=== PATIENT | female | born 1945 | race Two or more races ===

== ENCOUNTER 2017-05-22 22:20 | Inpatient (IN) | payer OTHER ==
[~2017-05-22] VITALS: Ht 152.4 cm; Wt 51.3 kg
--- NOTE | 2017-05-22 22:30 | NUR ---
PT TO ER BED 9. FAMILY AT BEDSIDE. PT BIBRA C/O ABD PAIN WITH N/V/D X 2 HOURS. FAMILY STATES PT SEEMS CONFUSED. PT PLACED IN GOWN AND ON POCKET MARKER. VSS/RESP EVEN UNLABORED/NAD NOTED/SKIN WARM AND DRY/AFEBRILE/AOX4. AWAITING MD CERDA.
--- NOTE | 2017-05-22 22:35 | NUR ---
URINE OBTAINED AND SENT TO THE LAB.
--- NOTE | 2017-05-22 22:40 | NUR ---
20G TO R HAND X 1 ATTEMPT USING ASEPTIC TECH, IV FLUSHES EASILY WITH NS. NO S/S INFILTRATION. LAB AT BEDSIDE TO DRAW.
[2017-05-22] MEDS ORDERED: IV NS 0.9% 1,000 ML BAG IV ONE (23:00)
[2017-05-23 00:01] LABS: BASOPHILS # (AUTO) 0.1 /CMM (0.0-0.2); BASOPHILS % (AUTO) 1.1 % (0.0-2.0); EOSINOPHILS # (AUTO) 0.4 /CMM (0.0-0.7); EOSINOPHILS % (AUTO) 3.7 % (0.0-6.0); HEMATOCRIT 44 % (33-45); HEMOGLOBIN 15.1 g/dL (11.5-14.8); LYMPHOCYTES # (AUTO) 2.1 /CMM (0.8-4.8); LYMPHOCYTES % (AUTO) 18.4 % (20.0-44.0); MEAN CORPUSCULAR HEMOGLOBIN 32 PG (26.0-33.0); MEAN CORPUSCULAR HGB CONC 34 g/dl (31.0-36.0); MEAN CORPUSCULAR VOLUME 93 fL (82-100); MONOCYTES # (AUTO) 0.7 /CMM (0.1-1.30); MONOCYTES % (AUTO) 6.4 % (2.0-12.0); NEUTROPHILS # (AUTO) 8.2 /CMM (1.8-8.9); NEUTROPHILS % (AUTO) 70.4 % (43.0-81.0); PLATELET COUNT (AUTO) 278 /CMM (150-450); RDW COEFFICIENT OF VARIATION 13.3 (11.5-15.0); RED BLOOD CELL COUNT(AUTO) 4.75 MIL/uL (4.0-5.2); WHITE BLOOD COUNT (AUTO) 11.6 K/uL (4.3-11.0)
[2017-05-23 00:15] LABS: SERUM AMMONIA 6 umol/L (11-32)
[2017-05-23 00:16] LABS: CALCIUM, SERUM 9.9 mg/dL (8.5-10.1); CARBON DIOXIDE 26 mmol/L (21-32); CHLORIDE 103 mmol/L (98-107); CREATININE 0.9 mg/dL (0.6-1.3); GLUCOSE 131 mg/dL (74-106); POTASSIUM 3.4 mmol/L (3.5-5.1); SODIUM SERUM 139 mmol/L (136-145); UREA NITROGEN, BLOOD 19 mg/dL (7-18)
[2017-05-23 00:22] LABS: TROPONIN I 0.028 ng/mL (0.00-0.056)
[2017-05-23 00:24] LABS: ALANINE AMINOTRANSFERASE 19 U/L (12-78); ALCOHOL, BLOOD < 3 mg/dL (0-0); ALKALINE PHOSPHATASE 91 U/L (46-116); ASPARTATE AMINOTRANSFERASE 17 U/L (15-37); BILIRUBIN,DIRECT 0.1 mg/dL (0.0-0.2); BILIRUBIN,TOTAL 0.4 mg/dL (0.2-1.0)
[2017-05-23 00:25] LABS: ACETAMINOPHEN 0 ug/ml (10-30); SALICYLATE 1.2 mg/dL (2.8-20.0)
[2017-05-23 00:26] LABS: THYROID STIMULATING HORMONE 3.005 uIU/mL (0.358-3.74)
[2017-05-23 00:37] LABS: INR 0.96 (0.87-1.13)
[2017-05-23 00:38] LABS: APPEARANCE,URINE CLEAR (CLEAR); BILIRUBIN,URINE NEGATIVE (NEGATIVE); BLOOD, URINE TRACE-INTA Ery/uL (NEGATIVE); COLOR,URINE YELLOW (YELLOW); KETONES,URINE NEGATIVE (NEGATIVE); LEUKOCYTE ESTERASE ,URINE NEGATIVE (NEGATIVE); NITRITE, URINE NEGATIVE (NEGATIVE); PROTEIN,URINE NEGATIVE (NEGATIVE); UGLUCOSE NEGATIVE (NEGATIVE); UROBILINOGEN,URINE 0.2 EU/dL (0.2)
--- NOTE | 2017-05-23 00:45 | NUR ---
PT AMBULATORY TO THE RESTROOM WITH STEADY GAIT.
[2017-05-23 00:47] LABS: BACTERIA,URINE None seen /HPF (None Seen); SQUAMOUS EPITHELIAL CELL,UR Rare /HPF (None Seen); WBC,URINE 0-2 /HPF (0-3)
--- NOTE | 2017-05-23 01:04 | NUR ---
LEW PHONE # [phone]. OLGA.
--- NOTE | 2017-05-23 03:12 | NUR ---
Taylor prince in ED - 05/23/17 at 0313 by FLORENTINO PT AMBULATORY TO THE RESTROOM WITH STEADY GAIT. VV.
--- NOTE | 2017-05-23 03:13 | NUR ---
PT AMBULATORY TO THE RESTROOM WITH STEADY GAIT. VSS.
--- NOTE | 2017-05-23 03:50 | NUR ---
REPORT CALLED TO SHAHEED FLETCHER FOR SACHI.
[2017-05-23 04:00] VITALS: BP 164/82
--- NOTE | 2017-05-23 04:02 | NUR ---
PT TO TELE 324-2 VIA STRETCHER ON GRANITE WORKER WITH RN PER ACLS PROTOCOL. VSS.
--- NOTE | 2017-05-23 04:10 | NUR ---
DIGITAL MARKETING ASSISTANTPOWER SWEEPER OPERATOR NOTES PT ARRIVED TO FLOOR VIA GURNEY, ABLE TO AMBULATE FROM GURNEY TO BED WITH STEADY GATE. IS AT BEDSIDE. PT IS A/O X3 ABLE TO MAKE NEEDS KNOWN. PT IS ANXIOUS AND IS NEEDING TO ADAPT TO THE NEW ENVIRONMENT. NO SIGNS OF SOB OR DISTRESS. BREATHING EVENLY AND UNLABORED ON RA. SKIN IS INTACT. DENIES PAIN AT THIS TIME. BED IS IN LOW AND LOCKED POSITION, CALL LIGHT WITHIN REACH. WILL CONTINUE TO MONITOR PT
--- NOTE | 2017-05-23 06:50 | NUR ---
QA AUDITOR CLOSING NOTES PT IS IN BED RESTING. BREATHING EVENLY AND UNLABORED. TELE MONITOR SHOWING SR 64. NO SIGNS OF SOB OR DISTRESS. PLACED PT ON 2L NC FOR COMFORT, PAGED DR VALDES TWICE, AWAITING CALL BACK AND ORDERS. BED IS IN LOW AND LOCKED POSITION, CALL LIGHT WITHIN REACH. WILL ENDORSE TO DAY SHIFT
[2017-05-23] MEDS ORDERED: Potassium Chloride 20 MEQ in IV D5/0.45 NACL 1,000 ML IV PRN (07:00)
[2017-05-23] MEDS ORDERED: ACETAMINOPHEN 650 MG/SUPP.RECT RC PRN (07:00)
[2017-05-23] MEDS ORDERED: ONDANSETRON HCL/PF 4 MG/2 ML VIAL IVP PRN (07:00)
[2017-05-23] MEDS ORDERED: MORPHINE SULFATE INJ 2 MG/ML DISP.SYRIN IV PRN (07:00)
[2017-05-23] MEDS ORDERED: HYDROMORPHONE INJ 0.5 MG/0.5 ML SYRINGE IV PRN (07:30)
--- NOTE | 2017-05-23 07:40 | NUR ---
RN OPENING NOTES PT IN BED RESTING. RESPIRATIONS EVEN AND UNLABORED ON ROOM AIR. NO SOB, RESPIRATORY DISTRESS OR COMPLAINTS OF PAIN NOTED AT THIS TIME. NO COMPLAINTS OF NAUSEA OR VOMITING AT THIS TIME. PT ON TELEMETRY MONITORING. PT WITH RIGHT HAND IV PRESENT, PATENT AND INTACT NO REDNESS OR INFILTRATION NOTED. BED LOCKED AND IN LOWEST POSITION, SIDE RAILS UP X 3, BED ALARM ON,SAFETY MEASURES IN PLACE CALL LIGHT WITHIN REACH, WILL CONTINUE TO MONITOR
[2017-05-23 08:00] VITALS: BP 149/88
[2017-05-23] MEDS ORDERED: ASPIRIN 300 MG/SUPP.RECT RC SCH (09:00)
[2017-05-23] MEDS ORDERED: FAMOTIDINE/PF INJ 20 MG/2 ML VIAL IV SCH (09:00)
[2017-05-23 10:12] LABS: BASOPHILS # (AUTO) 0.1 /CMM (0.0-0.2); BASOPHILS % (AUTO) 0.8 % (0.0-2.0); EOSINOPHILS # (AUTO) 0.2 /CMM (0.0-0.7); EOSINOPHILS % (AUTO) 1.1 % (0.0-6.0); HEMATOCRIT 43 % (33-45); HEMOGLOBIN 14.9 g/dL (11.5-14.8); LYMPHOCYTES # (AUTO) 1.7 /CMM (0.8-4.8); LYMPHOCYTES % (AUTO) 12.2 % (20.0-44.0); MEAN CORPUSCULAR HEMOGLOBIN 32 PG (26.0-33.0); MEAN CORPUSCULAR HGB CONC 35 g/dl (31.0-36.0); MEAN CORPUSCULAR VOLUME 93 fL (82-100); MONOCYTES # (AUTO) 0.9 /CMM (0.1-1.30); NEUTROPHILS # (AUTO) 11.4 /CMM (1.8-8.9); NEUTROPHILS % (AUTO) 79.9 % (43.0-81.0); PLATELET COUNT (AUTO) 322 /CMM (150-450); RDW COEFFICIENT OF VARIATION 12.8 (11.5-15.0); RED BLOOD CELL COUNT(AUTO) 4.66 MIL/uL (4.0-5.2); WHITE BLOOD COUNT (AUTO) 14.3 K/uL (4.3-11.0)
[2017-05-23 10:27] LABS: CALCIUM, SERUM 9.5 mg/dL (8.5-10.1); CARBON DIOXIDE 26 mmol/L (21-32); CHLORIDE 110 mmol/L (98-107); CREATININE 0.8 mg/dL (0.6-1.3); GLUCOSE 111 mg/dL (74-106); SODIUM SERUM 147 mmol/L (136-145); UREA NITROGEN, BLOOD 11 mg/dL (7-18)
[2017-05-23 10:34] LABS: ALANINE AMINOTRANSFERASE 21 U/L (12-78); ALBUMIN 3.9 g/dL (3.4-5.0); ALKALINE PHOSPHATASE 86 U/L (46-116); ASPARTATE AMINOTRANSFERASE 16 U/L (15-37); BILIRUBIN,TOTAL 0.5 mg/dL (0.2-1.0); MAGNESIUM 1.9 mg/dL (1.8-2.4); PHOSPHORUS 3.2 mg/dL (2.5-4.9); TOTAL PROTEIN, SERUM 7.1 g/dL (6.4-8.2)
[2017-05-23 11:15] LABS: CHOLESTEROL 211 mg/dL (<200); HDL CHOLESTEROL 71 mg/dL (40-60); LDL 128 mg/dL (0-99); TRIGLYCERIDES 70 mg/dL (30-150)
--- NOTE | 2017-05-23 11:37 | NUR ---
RN NOTES/MD ROUNDING PATIENT SEEN AND EXAMINED BY DR SANTIAGO, REVIEWED PLAN OF CARE WITH NEW ORDERS CARRIED OUT
[2017-05-23] MEDS: CARVEDILOL 6.25 MG TABLET PO SCH ×2 (12:00→13:46)
--- NOTE | 2017-05-23 12:39 | NUR ---
SHAHEED NOTES SEEN AND EXAMINED BY DR. PAMELA DA SILVA MD TO CONTINUE TELEMETRY STATUS Addendum: 05/23/17 at 1240 by ROBYN CORONA RN Amended: Links added.
[2017-05-23] MEDS ORDERED: ASPIRIN 81 MG TAB.CHEW PO SCH (13:00)
[2017-05-23] MEDS ORDERED: POTASSIUM CHLORIDE 20 MEQ TAB.PRT.SR PO ONE (13:00)
--- NOTE | 2017-05-23 15:25 | NUR ---
SHAHEED NOTES PATIENT REFUSES, NURSING EDUCATION REINFORCED, AWARE Addendum: 05/23/17 at 1528 by ROBYN CORONA RN Amended: Links added.
--- NOTE | 2017-05-23 15:30 | NUR ---
SHAHEED NOTES ONLY ASPIRIN TO BE ADMINISTERED, NO ANTI COAGULANTS AT THIS TIME PER DR. SANTIAGO Addendum: 05/23/17 at 1532 by ROBYN CORONA RN Amended: Links added.
[2017-05-23 15:53] VITALS: BP 106/67
[2017-05-23] MEDS ORDERED: ACETAMINOPHEN 325 MG TABLET PO PRN (17:00)
--- NOTE | 2017-05-23 18:00 | NUR ---
RN NOTES CALLED RADIOLOGY TO ASK FOR RESULTS OF MRI PER TECH WILL HAVE RADIOLOGIST READ, FAMILY INFORMED
--- NOTE | 2017-05-23 19:35 | NUR ---
RN CLOSING NOTES PT IN BED RESTING. RESPIRATIONS EVEN AND UNLABORED ON ROOM AIR. NO SOB, RESPIRATORY DISTRESS OR COMPLAINTS OF PAIN NOTED AT THIS TIME. NO COMPLAINTS OF NAUSEA OR VOMITING AT THIS TIME. PT ON TELEMETRY MONITORING. PT WITH RIGHT HAND IV REMOVED WITH NO ASE. BED LOCKED AND IN LOWEST POSITION, SIDE RAILS UP X 2, SAFETY MEASURES IN PLACE CALL LIGHT WITHIN REACH,DR SANTIAGO WITH VERBAL DISCHARGE ORDERS WILL ASSIST WITH DISCHARGE PROCESS AND ENDORSE FOR CONTINUATION OF DC PROCESS
[2017-05-23 20:02] VITALS: BP 116/59
--- NOTE | 2017-05-23 20:30 | NUR ---
MS COLLAR CLOSER LOCKSTITCH NOTE REPORT WAS RECEIVED FOR PT. DURING REPORT DR SANTIAGO WAS ON THE FLOOR AND GAVE ORDERS TO DISCHARGE PT. PT IS AWAKE AND ALERT WITH FAMILY AT BEDSIDE. STROKE SURVEY WAS DONE WITH AT BEDSIDE. EXIT CARE, LABS, IMAGING, AND NOTES WERE GIVEN TO PATIENT. EXIT CARE WAS REVIEWED WITH PATIENT AND AT BEDSIDE. VITALS WERE WNL. BP 116/59, HR 75, RR 18, TEMP 98.1, DENIES PAIN, NO SIGNS OF SOB OR DISTRESS. IV ACCESS AND ID BAND WERE REMOVED. PT WAS ABLE TO AMBULATE WITH STEADY GAIT. ESCORTED DOWN BY SUNNY CARRASCO.
[2017-05-23] MEDS ORDERED: ATORVASTATIN 40 MG TABLET PO SCH (22:00)
[2017-05-24] MEDS ORDERED: FAMOTIDINE (20 MG) 20 MG TABLET PO SCH (09:00)
== END 2017-05-23 20:30 | disposition home or self-care (01) | DRG 69 ==
LOC: ER 22:21 → TELE 05-23 03:53 → MED 05-23 09:41 → TELE 05-23 12:00
PROVIDERS: ADMIT Internal Medicine; ATTEND Internal Medicine
DX: G45.9 Transient cerebral ischemic attack, unspecified (principal); I21.4 Non-ST elevation (NSTEMI) myocardial infarction; E87.0 Hyperosmolality and hypernatremia; F41.9 Anxiety disorder, unspecified; I10 Essential (primary) hypertension; Z88.8 Allergy status to other drugs, medicaments and biological substances; Z86.73 Personal history of transient ischemic attack (TIA), and cerebral infarction without residual deficits; R09.02 Hypoxemia; E87.6 Hypokalemia; E78.5 Hyperlipidemia, unspecified
CPT/HCPCS: 36415; 70450-TC; 70551-TC; 71045-TC; 80048-TC; 80053-TC; 80061-TC; 80076-TC; 80305; 81000-TC; 82140-TC; 83735-TC; 84100-TC; 84443-TC; 84484-TC; 85025-TC; 85730-TC; 87040-TC; 87086-TC; 92611-TC; 93307-TC; 93880-TC; A4606; G0480; J3480; J3490; Z7610

== ENCOUNTER 2021-03-29 01:46 | Inpatient (IN) | payer OTHER, MEDICARE ==
[~2021-03-29] VITALS: Ht 152.4 cm; Wt 50.5 kg
--- NOTE | 2021-03-29 02:20 | NUR ---
PT CAME IN FROM HOME C/O N/V STARTED TONIGHT WITH FORGETFULNESS. A/O X [address] THIS TIME
--- NOTE | 2021-03-29 02:31 | NUR ---
PER JOSIAH PT REFUSED BLOOD DRAW
--- NOTE | 2021-03-29 02:45 | NUR ---
PT OUT TO CT. SPOUSE SPEAKING TO MD AT THIS TIME.
--- NOTE | 2021-03-29 03:45 | NUR ---
URINE COLLECTED AND SENT TO LAB. SPOUSE AT BEDSIDE PT OKAY TO GET BLOOD DRAWN NOW.
--- NOTE | 2021-03-29 03:48 | NUR ---
IV LINE ESTABLISHED AT RAC 22G, BLOOD DRAWN AND SENT TO LAB
[2021-03-29 04:22] LABS: CALCIUM, SERUM 9.4 mg/dL (8.5-10.1); CARBON DIOXIDE 26 mmol/L (21-32); CHLORIDE 105 mmol/L (98-107); GLUCOSE 130 mg/dL (74-106); POTASSIUM 3.6 mmol/L (3.5-5.1); SODIUM SERUM 139 mmol/L (136-145); UREA NITROGEN, BLOOD 30 mg/dL (7-18)
[2021-03-29 04:24] LABS: BASOPHILS # (AUTO) 0.1 K/uL (0.0-0.2); BASOPHILS % (AUTO) 0.5 % (0.0-2.0); EOSINOPHILS % (AUTO) 4.7 % (0.0-6.0); HEMATOCRIT 42 % (33-45); HEMOGLOBIN 14.5 g/dL (11.5-14.8); LYMPHOCYTES # (AUTO) 1.9 K/uL (0.8-4.8); LYMPHOCYTES % (AUTO) 15.9 % (20.0-44.0); MEAN CORPUSCULAR HGB CONC 34 g/dl (31.0-36.0); MEAN CORPUSCULAR VOLUME 93 fL (82-100); MONOCYTES # (AUTO) 0.7 K/uL (0.1-1.30); MONOCYTES % (AUTO) 6.2 % (2.0-12.0); NEUTROPHILS # (AUTO) 8.8 K/uL (1.8-8.9); NEUTROPHILS % (AUTO) 72.7 % (43.0-81.0); PLATELET COUNT (AUTO) 310 K/uL (150-450); RED BLOOD CELL COUNT(AUTO) 4.52 MIL/uL (4.0-5.2); WHITE BLOOD COUNT (AUTO) 12.1 K/uL (4.3-11.0)
[2021-03-29 04:25] LABS: BILIRUBIN,URINE NEGATIVE (NEGATIVE); COLOR,URINE YELLOW (YELLOW); LEUKOCYTE ESTERASE ,URINE TRACE (NEGATIVE); NITRITE, URINE NEGATIVE (NEGATIVE); PROTEIN,URINE NEGATIVE (NEGATIVE); UGLUCOSE NEGATIVE (NEGATIVE); UROBILINOGEN,URINE 0.2 EU/dL (0.2)
[2021-03-29 04:27] LABS: ALCOHOL, BLOOD < 3 mg/dL (0-0)
[2021-03-29 04:30] LABS: ACETAMINOPHEN 0 ug/ml (10-30)
--- NOTE | 2021-03-29 04:30 | NUR ---
SPOUSE AT BEDSIDE PT RESTING COMFORTABLY V/S STABLE NO N/V.
[2021-03-29] MEDS ORDERED: IV NS 0.9% 1,000 ML IV ONE (05:00)
[2021-03-29 06:39] LABS: BACTERIA,URINE Few /HPF (None Seen); RBC,URINE NONE SEEN /HPF (0-2); SQUAMOUS EPITHELIAL CELL,UR Few /HPF (None Seen); WBC,URINE F /HPF (0-3)
--- NOTE | 2021-03-29 06:39 | NUR ---
MRSA SWAB COLLECTED AND SENT TO LAB. PATIENT'S BELONGINGS LIST DONE.
--- NOTE | 2021-03-29 06:48 | NUR ---
COVID SWAB COLLECTED AND SENT
[2021-03-29] MEDS ORDERED: CARV3.122 PO (07:07)
[2021-03-29] MEDS ORDERED: FURO20TA4 PO (07:07)
[2021-03-29] MEDS ORDERED: ATOR40TA PO (07:07)
[2021-03-29] MEDS ORDERED: ESOM20CA PO ×2 (07:07)
[2021-03-29] MEDS ORDERED: POTA10CA43 PO (07:07)
[2021-03-29] MEDS ORDERED: ASPI-1169 PO (07:07)
--- NOTE | 2021-03-29 07:20 | NUR ---
[facility] CALLED GALLERY ASSISTANT PAGED.
--- NOTE | 2021-03-29 07:37 | NUR ---
REPORT GIVEN TO BRANDAN FOR SACHI. PT REMAINS INSTABLE CONDITION PENDING ADMISSION
[2021-03-29] MEDS ORDERED: POTA10TA10 PO (08:02)
--- NOTE | 2021-03-29 08:22 | NUR ---
GOT BED 325-1
--- NOTE | 2021-03-29 09:44 | NUR ---
TRANSPORTED TO FLOOR IN STABLE CONDITION.
--- NOTE | 2021-03-29 10:15 | NUR ---
MS RN OPENING NOTES ADMITTED FROM ER IS A 75 Y.O. FEMALE, TRANSPORTED VIA GURNEY ACCOMPANIED BY 2 NURSES AND FAMILY MEMBER. PATIENT TRANSFERRED TO BED AND COMFORT MEASURES PROVIDED. PATIENT IS ALERT AND ORIENTED BY CONFUSED/ ANXIOUS AT TIMES, AND NOT A GOOD HISTORY PROVIDER AT THIS TIME. PATIENT TOLERATES ROOM AIR WITH EQUAL AND UNLABORED BREATHING, WITH NO RESPIRATORY DISTRESS, SATURATING AT 96-98%. NO MOTOR OR SENSORY DEFICIT NOTED. PATIENT DOES NOT COMPLAIN OF PAIN OR DISCOMFORT AT THIS TIME. WITH IV ACCESS ON RIGHT FOREARM G 22, PATENT AND INTACT. NO SKIN ISSUES. DR. GARCIA NOTIFIED OF ADMISSION. SAFETY MEASURES ENSURED WITH BED LOCKED AND ON LOWEST POSITION. SIDERAILS RAISED. CALL LIGHT WITHIN REACH AT ALL TIMES. WILL CONTINUE TO MONITOR PATIENT.
[2021-03-29] MEDS ORDERED: IV NS 0.9% 1,000 ML IV PRN (11:00)
[2021-03-29] MEDS ORDERED: MAG HYDROX/AL HYDROX/SIMETH 30 ML UDC PO PRN (11:00)
[2021-03-29] MEDS ORDERED: ACETAMINOPHEN 325 MG TABLET PO PRN (11:00)
[2021-03-29] MEDS ORDERED: ONDANSETRON HCL/PF 4 MG/2 ML VIAL IVP PRN (11:00)
[2021-03-29] MEDS ORDERED: MAGNESIUM HYDROXIDE 30 ML UDC PO PRN (11:00)
[2021-03-29] MEDS ORDERED: POTASSIUM CHLORIDE 10 MEQ TABLET.SA PO PRN (11:30)
[2021-03-29] MEDS ORDERED: FUROSEMIDE 20 MG TABLET PO PRN (11:30)
[2021-03-29] MEDS ORDERED: ESOMEPRAZOLE MAG TRIHYDRATE 20 MG CAPSULE.DR PO SCH (11:30)
[2021-03-29] MEDS ORDERED: ATORVASTATIN 40 MG TABLET PO SCH ×2 (11:30→18:00)
[2021-03-29] MEDS: ASPIRIN 81 MG TAB.CHEW PO SCH (12:50)
[2021-03-29] MEDS: PANTOPRAZOLE 40 MG TABLET.DR PO SCH (12:50)
[2021-03-29] MEDS: CEPHALEXIN MONOHYDRATE 500 MG CAPSULE PO SCH ×2 (12:50→20:41)
[2021-03-29] MEDS: CARVEDILOL 3.125 MG TABLET PO SCH ×2 (12:51→17:18)
[2021-03-29] MEDS ORDERED: DIAZEPAM 5 MG/ML 2 ML DISP.SYRIN IV PRN (15:00)
--- NOTE | 2021-03-29 15:30 | NUR ---
MS RN NOTE PATIENT BROUGHT TO RADIOLOGY DEPARTMENT FOR MRI ORDERED. IN STABLE CONDITION.
--- NOTE | 2021-03-29 15:48 | NUR ---
SON MEGAN NIRU DAUGHTER KEVIN NIRU
--- NOTE | 2021-03-29 16:10 | NUR ---
MS RN NOTE PATIENT BACK FROM MRI AROUND 1600H, COMPLAINED OF HEADACHE 3-4/10. TYLENOL GIVEN PER PATIENT'S REQUEST. PROVIDED WITH CALM AND QUIET ENVIRONMENT. WILL CONTINUE TO MONITOR PATIENT.
[2021-03-29] MEDS ORDERED: ASPIRIN/ACETAMINOPHEN/CAFFEINE 1 EACH TABLET PO PRN (17:30)
--- NOTE | 2021-03-29 18:57 | NUR ---
MS RN CLOSING NOTES PATIENT IS ALERT AND ORIENTED BY CONFUSED/ ANXIOUS AT TIMES, AND NOT A GOOD HISTORY PROVIDER AT THIS TIME. PATIENT TOLERATES ROOM AIR WITH EQUAL AND UNLABORED BREATHING, WITH NO RESPIRATORY DISTRESS, SATURATING AT 96-99%. NO MOTOR OR SENSORY DEFICIT NOTED. PATIENT DOES NOT COMPLAIN OF PAIN OR DISCOMFORT AT THIS TIME. WITH IV ACCESS ON RIGHT FOREARM G 22, PATENT AND INTACT. NO SKIN ISSUES. SEEN BY DR. GARCIA. MRI DONE ORDERED, AWAITING RESULTS. SAFETY MEASURES ENSURED WITH BED LOCKED AND ON LOWEST POSITION. SIDERAILS RAISED. CALL LIGHT WITHIN REACH AT ALL TIMES. WILL ENDORSE PATIENT FOR CONTINUITY OF CARE.
--- NOTE | 2021-03-29 19:25 | NUR ---
MS RN OPENING NOTE PATIENT RECEIVED IN BED AWAKE. A/OX3-4. PATIENT SHOWS NO S/S OF DISTRESS, BREATHING SYMMETRICAL. RFA 22G SL. SAFETY MEASURES IN PLACE: BED AT LOWEST POSITION, RAILS UP X2, CALL VALDOVINOS WITHIN REACH. WILL CONTINUE TO FOLLOW PATIENT THROUGHOUT SHIFT.
[2021-03-29 20:31] VITALS: BP 129/79
[2021-03-30 00:30] LABS: ALBUMIN 3.6 g/dL (3.4-5.0); BILIRUBIN,DIRECT 0.1 mg/dL (0.0-0.2); BILIRUBIN,TOTAL 0.5 mg/dL (0.2-1.0); TOTAL PROTEIN, SERUM 6.1 g/dL (6.4-8.2)
--- NOTE | 2021-03-30 06:34 | NUR ---
MS RN CLOSING NOTE PATIENT ASLEEP IN BED. A/OX4. NO S/S OF DISTRESS, BREATHING SYMMETRICAL. PATIENT IS SCHEDULED FOR A CT AND U/S LATER TODAY. SAFETY MEASURES IN PLACE. BED AT LOWEST POSITION, RAILS UP X2, CALL VALDOVINOS WITHIN REACH. WILL ENDORSE TO NEXT SHIFT FOR SACHI.
--- NOTE | 2021-03-30 07:27 | NUR ---
MS RN NOTE PATIENT REFUSED MORNING BLOOD DRAW. ENDORSED TO NEXT SHIFT NURSE.
[2021-03-30] MEDS: PANTOPRAZOLE 40 MG TABLET.DR PO SCH ×2 (07:30→09:20)
--- NOTE | 2021-03-30 07:30 | NUR ---
MS RN OPENING NOTES RECEIVED PATIENT IN BED AWAKE. A/OX3-4. PATIENT SHOWS NO S/S OF DISTRESS NOTED, BREATHING EVEN AND UNLABORED. IV ACCESS ON RFA 22G SL, PATENT AND FLUSHES WELL. NO COMPLAINTS OF PAIN AT THIS TIME. REINFORCED NPO FOR AM PROCEDURE. SAFETY MEASURES IN PLACE: BED AT LOWEST POSITION, RAILS UP X2, CALL VALDOVINOS WITHIN REACH. WILL CONTINUE TO MONITOR PATIENT ACCORDINGLY.
--- NOTE | 2021-03-30 07:35 | NUR ---
RN NOTES PANTOPRAZOLE NON ADMINISTER, PATIENT IS ON NPO FOR AM PROCEDURE.
[2021-03-30 08:00] VITALS: BP 148/76
[2021-03-30] MEDS: CEPHALEXIN MONOHYDRATE 500 MG CAPSULE PO SCH (09:20)
[2021-03-30] MEDS: ASPIRIN 81 MG TAB.CHEW PO SCH (09:20)
[2021-03-30 09:21] VITALS: BP 148/76
[2021-03-30] MEDS: CARVEDILOL 3.125 MG TABLET PO SCH (09:21)
--- NOTE | 2021-03-30 09:30 | NUR ---
RN NOTES PATIENT AND PATIENT'S DAUGHTER VERBALIZED PATIENT WANTS TO GO HOME SINCE THEY HAVE AN APPOINTMENT WITH HER PRIMARY AND OTHER SPECIALIST. INFORMED GOLD GARCIA NP REGARDING THEIR CONCERNS WITH ORDER MADE AND CARRIED OUT.
--- NOTE | 2021-03-30 10:30 | NUR ---
TRACTOR TRAILER MOVING VAN DRIVER NOTES DISCHARGE PATIENT IN STABLE CONDITION, VITAL SIGNS WITHIN NORMAL LIMITS. DISCHARGE INSTRUCTIONS AND PAPERS PROVIDED AND GIVEN TO PATIENT'S DAUGHTER KEVIN. CD FOR IMAGING ALSO PROVIDED. IV ACCESS REMOVED, COVERED WITH GAUZE, NO BLEEDING NOTED. ARMBAND REMOVED. BELONGINGS ACCOUNTED AND SIGNED FOR. WHEELED TO LOBBY SAFELY ACCOMPANIED BY [place] FLORIAN). LEFT UNIT IN STABLE CONDITION. GOLD GARCIA AND CHARGE NURSE AWARE OF DISCHARGE.
[2021-03-30] MEDS ORDERED: CEPH500C2 PO (14:21)
== END 2021-03-30 10:30 | disposition home or self-care (01) | DRG 641 ==
LOC: ER 01:52 → MED 08:32
PROVIDERS: ADMIT Nurse Practitioner Acute Care; ATTEND Nurse Practitioner Acute Care
DX: E86.0 Dehydration (principal); R41.82 Altered mental status, unspecified; E78.5 Hyperlipidemia, unspecified; Z88.8 Allergy status to other drugs, medicaments and biological substances; K76.9 Liver disease, unspecified; K44.9 Diaphragmatic hernia without obstruction or gangrene; Z86.73 Personal history of transient ischemic attack (TIA), and cerebral infarction without residual deficits; M81.0 Age-related osteoporosis without current pathological fracture; M89.8X8 Other specified disorders of bone, other site; R79.89 Other specified abnormal findings of blood chemistry
CPT/HCPCS: 36415; 70450-TC; 70551-TC; 71045-TC; 71250-TC; 76705-TC; 80048-TC; 80076-TC; 81001; 84484-TC; 85025-TC; 87081-TC; 97112-TC; 97116-TC; 97530-TC; G0378; G0480; J3360; J7030